=== PATIENT | female | born 2000 | race Hispanic/Latino ===

== ENCOUNTER 2021-06-18 11:02 | Emergency (ER) | payer MEDICAID ==
[2021-06-18 12:12] VITALS: BP 113/78
== END 2021-06-18 13:54 | disposition left against medical advice (07) ==
LOC: ED 11:02
DX: R11.10 Vomiting, unspecified (principal); Z53.21 Procedure and treatment not carried out due to patient leaving prior to being seen by health care provider

== ENCOUNTER 2021-06-19 12:14 | Emergency (ER) | payer MEDICAID ==
--- NOTE | 2021-06-19 12:28 | Emergency Department Report ---
ED Dysuria HPI - HPI Chief Complaint: Urogenital-Female Stated Complaint: POSS UTI Time Seen by Provider: 06/19/21 12:16 Duration: 3 Days Location of Discomfort: Suprapubic Symptoms: Dysuria: Yes, Frequency: No, Suprapubic Pain: Yes, Flank Pain: No, Fever: No, Hematuria: No, Abdominal Pain: No, Previous UTI's: Yes Other History: Patient is a 21-year-old female that comes to the emergency room with dysuria. She has suprapubic cramping. Last menstrual period 2 weeks ago. States that she took Azo yesterday. Denies vaginal discharge. Denies nausea vomiting diarrhea. Denies back pain. Patient is ambulatory, not ill, nontoxic and afebrile on arrival to ER. ED Review of Systems ROS: Stated complaint: POSS UTI Other details as noted in HPI Comment: All other systems reviewed and negative ED Past Medical Hx - Past Medical History Previous Medical History?: No - Surgical History Past Surgical History?: No - Family History Family history: no significant - Social History Smoking Status: Never Smoker Substance Use Type: None - Medications Home Medications: Home Medications Medication Instructions Recorded Confirmed Last Taken Type Ondansetron [Zofran Odt] 4 mg PO Q8HR PRN #10 tab.rapdis 06/19/21 Unknown Rx Sulfamethoxazole/Trimethoprim 1 each PO BID #10 tablet 06/19/21 Unknown Rx [Bactrim DS TAB] Dysuria Exam - Exam General: Vital signs noted. No distress. Alert and acting appropriately. Exam: Yes Moist Mucous Membranes, No CVA Tenderness, No Abdominal Tenderness, No Rigidity or Guarding ED Course Vital Signs 06/19/21 12:17 Temperature 98.3 F Pulse Rate 94 H Respiratory 20 Rate Blood Pressure 125/79 O2 Sat by Pulse 96 Oximetry ED Medical Decision Making - Medical Decision Making Labs 06/19/21 12:24 Urine Color Yellow Urine Turbidity Turbid Urine pH 6.0 Ur Specific [place] 1.020 Urine Protein 100 mg/dl Urine Glucose (UA) Neg Urine Ketones Neg Urine Blood Mod Urine Nitrite Neg Ur Reducing Substances Not Reportable Urine Bilirubin Neg Urine Ictotest Not Reportable Urine Urobilinogen < 2.0 Ur Leukocyte Esterase Lg Urine WBC (Auto) > 182.0 H Urine RBC (Auto) 55.0 U Epithel Cells (Auto) 24.0 H Urine Bacteria (Auto) 4+ Urine WBC Clumps 3+ Urine HCG, Qual Negative Vital Signs 06/19/21 12:17 Temperature 98.3 F Pulse Rate 94 H Respiratory 20 Rate Blood Pressure 125/79 O2 Sat by Pulse 96 Oximetry Patient given a gram of Rocephin IM. Urine culture pending. She will be sent home on Bactrim. Patient taking p.o. Patient has no fever or chills. No CVA tenderness. No vaginal discharge. U. Preg negative. Patient being discharged home with discharge plan of care including diet, activity, medications and follow-up. She verbalizes understanding of discharge plan of care. - Differential Diagnosis Rule out UTI/ Critical care attestation.: If time is entered above; I have spent that time in minutes in the direct care of this critically ill patient, excluding procedure time. ED Disposition Clinical Impression: UTI (urinary tract infection) Qualifiers: Urinary tract infection type: site unspecified Disposition: HOME / SELF CARE / HOMELESS Is pt being admited?: No Does the pt Need Aspirin: No Condition: Stable Instructions: Urinary Tract Infection, Adult Additional Instructions: Stay well-hydrated with water Motrin or Tylenol for pain Medication as ordered today After you complete antibiotics follow-up with primary care to make sure this is gone away. I have given you referral to a primary care doctor so that you do not need to use the ER for nonmedical emergencies Prescriptions: Sulfamethoxazole/Trimethoprim [Bactrim DS TAB] 1 each PO BID #10 tablet Ondansetron [Zofran Odt] 4 mg PO Q8HR PRN #10 tab.rapdis PRN Reason: Vomiting Referrals: STAR STRICKLAND MD [Staff Physician] - 3-5 Days Time of Disposition: 13:09
[2021-06-19 12:57] LABS: HCG Qualitative,Urine Negative (Negative)
[2021-06-19 13:02] LABS: Bacteria,Urine 4+ /HPF (Negative); Bilirubin,Urine NEG (Negative); Blood,Urine MOD (Negative); Color,Urine Yellow (Yellow); Urobilinogen,Urine < 2.0 mg/dL (<2.0)
[2021-06-19] MEDS ORDERED: ONDANSETRON 2 MG/2.5 ML ORAL LIQD PO ONE (13:02)
[2021-06-19 13:05] LABS: WBC,Urine > 182.0 /HPF (0.0-6.0)
[2021-06-19] MEDS ORDERED: LIDOCAINE-MPF (1%) 10 MG/1 ML VIAL 5 ML INFILTRATI ONE (13:06)
[2021-06-19] MEDS ORDERED: ONDANSETRON 4 MG ODT TAB PO ONE (13:07)
[2021-06-19 13:39] VITALS: BP 124/78
== END 2021-06-19 13:25 | disposition home or self-care (01) ==
LOC: ED 12:14
DX: N39.0 Urinary tract infection, site not specified (principal)
CPT/HCPCS: 81001; 81025; 96372; 99283; J0696; J3490; Q0162